=== PATIENT | female | born 1955 | race Caucasian/White ===

== ENCOUNTER 2017-10-23 19:28 | Emergency (ER) | payer MEDICAID, OTHER | END 2017-10-23 23:32 | disposition left against medical advice (07) | LOC: FTE 19:28 | DX: S06.0X0A Concussion without loss of consciousness, initial encounter (principal); W07.XXXA Fall from chair, initial encounter; Y92.9 Unspecified place or not applicable | CPT/HCPCS: 70450; 99284-25 ==